=== PATIENT | male | born 1955 | race Caucasian/White ===

== ENCOUNTER 2024-04-29 06:49 | Emergency (ER) | payer OTHER ==
[2024-04-29 07:04] VITALS: BP 185/93; PULSE 66; RESP 16; TEMP 97.7; BMI 25.8
[2024-04-29] MEDS ORDERED: DEXAMETHASONE SOD PHOSPHATE 4 MG/1 ML VIAL ONE (07:26)
[2024-04-29] MEDS: DEXAMETHASONE SOD PHOSPHATE 4 MG/1 ML VIAL IM ONE (07:29)
== END 2024-04-29 09:19 | disposition home or self-care (01) ==
LOC: FER 06:49
PROC: 3E023GC Introduction of Other Therapeutic Substance into Muscle, Percutaneous Approach (ICD-10-PCS; principal; 2024-04-29)
DX: M54.41 Lumbago with sciatica, right side (principal)
CPT/HCPCS: 72100-TC-FY; 99284-25